=== PATIENT | male | born 1975 | race Caucasian/White ===

== ENCOUNTER 2022-12-04 10:31 | Outpatient (CLI) | payer OTHER, SELFPAY ==
[2022-12-04 14:57] LABS: Free T4 Free Thyroxine* 0.73 ng/dL (0.70-1.85)
== END 2022-12-04 10:32 | disposition home or self-care (01) ==
PROVIDERS: PCP Emergency Medicine; Visit Provider Emergency Medicine
DX: E03.9 Hypothyroidism, unspecified (principal)
CPT/HCPCS: 84439; 84443

== ENCOUNTER 2024-08-22 10:42 | Outpatient (CLI) | payer OTHER, SELFPAY | END 2024-08-22 10:43 | disposition home or self-care (01) | PROVIDERS: PCP Emergency Medicine; Visit Provider Family Medicine | DX: E03.9 Hypothyroidism, unspecified (principal); E78.2 Mixed hyperlipidemia; Z13.1 Encounter for screening for diabetes mellitus; Z12.5 Encounter for screening for malignant neoplasm of prostate | CPT/HCPCS: 80048; 80061; 84439; 84443; G0103 ==

== ENCOUNTER 2025-05-30 08:38 | Outpatient (CLI) | payer OTHER, SELFPAY | END 2025-05-30 08:39 | disposition home or self-care (01) | PROVIDERS: PCP Family Medicine; Visit Provider Family Medicine | DX: E78.5 Hyperlipidemia, unspecified (principal); E03.9 Hypothyroidism, unspecified; R79.89 Other specified abnormal findings of blood chemistry; N52.9 Male erectile dysfunction, unspecified | CPT/HCPCS: 80061; 84439; 84443; 84480 ==